=== PATIENT | female | born 1985 | race Caucasian/White ===

== ENCOUNTER 2018-12-07 11:43 | Emergency (ER) | payer MEDICAID, OTHER ==
[~2018-12-07] VITALS: Ht 180.3 cm; Wt 52.2 kg
[2018-12-07 12:28] VITALS: BP 110/70
--- NOTE | 2018-12-07 12:29 | NUR ---
ED Nurse Note:pt. hit her nose on the door today, no bleeding or deformities on arrival noted, pt. A/Ox4 ambulatory
--- NOTE | 2018-12-07 13:27 | Emergency Room Report ---
History of Present Illness General Chief Complaint: Pain Source: Patient Present Illness HPI 33-year-old female presents to the emergency department complaining of 10 out of 10 in severity pain, tenderness and swelling to the nose after accidentally hitting her nose while opening a large heavy door approximately 2 hours ago. Patient does report she had some bleeding out of the right nostril. She denies loss of consciousness, dizziness, sudden severe headache. Patient denies bruising at this time she states that bleeding has resolved. Patient denies taking blood thinning medications. she states that ice has helped to reduce her pain however this is just temporary per patient. Allergies: Coded Allergies: No Known Allergies (Unverified , 12/07/18) Patient History Past Medical History: see triage record Past Surgical History: none Pertinent Family History: none Last Menstrual Period: 12/02/18 Reviewed Nursing Documentation: PMH: Agreed; PSxH: Agreed Nursing Documentation-PMH Past Medical History: No Stated History Review of Systems All Other Systems: negative except mentioned in HPI Physical Exam Vital Signs Date Time Temp Pulse Resp B/P (MAP) Pulse Ox O2 Delivery O2 Flow Rate FiO2 12/07/18 11:48 98.4 78 18 110/70 98 Room Air Sp02 EP Interpretation: reviewed, normal General Appearance: no apparent distress, alert, GCS 15, non-toxic Head: normocephalic, other - swelling and ttp to the nasal bridge area. no evidence of septal hematoma. Eyes: bilateral eye normal inspection, bilateral eye PERRL ENT: hearing grossly normal, normal voice, other - no evidence of septal hematoma. Swelling noted to the nose. mild deformity Neck: full range of motion Respiratory: lungs clear, normal breath sounds, speaking full sentences Cardiovascular #1: regular rate, rhythm Musculoskeletal: back normal, gait/station normal, normal range of motion, non- tender - see ENT Neurologic: alert, oriented x3, responsive, motor strength/tone normal, sensory intact, normal gait, speech normal, grossly normal Psychiatric: judgement/insight normal Skin: normal color, no rash, warm/dry, well hydrated Medical Decision Making PA Attestation Dr. hunt is my supervising Physician whom patient management has been discussed with. Diagnostic Impression: Primary Impression: Nasal bone fracture Qualified Codes: S02.2XXA - Fracture of nasal bones, initial encounter for closed fracture ER Course 33-year-old female presents to the emergency department complaining of 10 out of 10 in severity pain, tenderness and swelling to the nose after accidentally hitting her nose while opening a large heavy door approximately 2 hours ago. Patient does report she had some bleeding out of the right nostril. She denies loss of consciousness, dizziness, sudden severe headache. Patient denies bruising at this time she states that bleeding has resolved. Patient denies taking blood thinning medications. she states that ice has helped to reduce her pain however this is just temporary per patient. Ddx considered but are not limited to Fracture, dislocation, contusion, concussion Sprain/Strain/Spasm, hematoma Vital signs: are WNL, pt. is afebrile H&PE are most consistent with contusion, no evidence of focal neurological deficit, no loss of consciousness. ORDERS: CT Facial bones: questionable non-displaced nasal fracture -- which correlates with HPI ED INTERVENTIONS: -Ice applied to the Affected area. -I do not identify an emergent condition at this time. With current presentation , pt. is stable for close outpatient follow up and conservative treatment. D/ w pt. to return promptly to ED with worsening or new symptoms.- Pt. verbalizes' understanding and agreement with proposed treatment plan.proposed treatment plan. DISCHARGE: At this time pt. is stable for d/c to home. Will provide printed patient care instructions, and any necessary prescriptions. Care plan and follow up instructions have been discussed with the patient prior to discharge. CT/MRI/US Diagnostic Results CT/MRI/US Diagnostic Results : Imaging Test Ordered: CT Facial Bones no contrast Impression questionable non-displaced nasal fracture ---Per official radiology report- Please see report for specific details. Last Vital Signs Date Time Temp Pulse Resp B/P (MAP) Pulse Ox O2 Delivery O2 Flow Rate FiO2 12/07/18 12:28 98.4 78 18 110/70 98 Room Air Status: improved Disposition: HOME, SELF-CARE Condition: Stable Scripts Ibuprofen* (MOTRIN*) 600 Mg Tablet 600 MG ORAL THREE TIMES A DAY, #20 TAB 0 Refills Prov: Windy Patrick 12/07/18 Referrals: Anival Patton MD Patient Instructions: Nasal Fracture, [id number] Additional Instructions: Take medications as directed. Follow up with a Primary Care Provider in 3-5 days, even if your symptoms have resolved. --Please review list of primary care clinics, if you do not already have a primary care provider Return sooner to ED if new symptoms occur, or current symptoms become worse. Do not drink alcohol, drive, or operate heavy machinery while taking [ ] as this may cause drowsiness. - Please note that this Emergency Department Report was dictated using [employer] technology software, occasionally this can lead to erroneous entry secondary to interpretation by the dictation equipment. Windy Patrick Dec 07, 2018 13:27
--- NOTE | 2018-12-07 13:34 | Diagnostic Imaging Report ---
Indications: Facial trauma, pain Technique: Spiral images obtained through the facial bones. No IV contrast utilized. Multiplanar reconstructions were generated.Total dose length product 577.43 mGycm. CTDIvol(s) 28.19 mGy. Dose reduction achieved using automated exposure control Comparison: none Findings: The lowest cuts through the nasal bone demonstrates equivocal slight buckling of the right side of the nasal bone. There is also a questionable tiny osseous fragment adjacent to the right side of the tip of the nasal bone. The nasal septum is intact. Only minimal perinasal soft tissue swelling is demonstrated. The remainder of the bones are intact. The orbital and sinus harden are intact. No worrisome sinus air-fluid levels. The nasal process of the maxilla is intact. The dentition is intact. The mastoids are clear. Sinuses are clear. The maxillary ostia are patent. The visualized intracranial structures are unremarkable. The optic globes are intact. The upper aerodigestive tract is unremarkable. Impression: Very questionable slight buckling of the right side of the nasal bone and possible tiny osseous fragment adjacent to the tip of the right-sided nasal bone, could indicate a nondisplaced nasal fracture. Correlate with clinical findings Otherwise unremarkable exam. The CT scanner at [facility] is accredited by the [employer] and the scans are performed using protocols designed to limit radiation exposure to as low as reasonably achievable to attain images of sufficient resolution adequate for diagnostic evaluation.
[2018-12-07] MEDS ORDERED: IBUPROFEN600 MG ORAL (13:51)
[2018-12-07] MEDS ORDERED: NKM (14:01)
[2018-12-07 14:02] VITALS: BP 110/70
--- NOTE | 2018-12-07 14:05 | NUR ---
ER DISCHARGE NOTE: Patient is cleared to be discharged per ERMD, pt is aox4, on room air, with stable vital signs. pt was given dc and prescription instructions, pt was able to verbalize understanding, pt is able to ambulate with steady gait. pt took all belongings.
== END 2018-12-07 14:10 | disposition home or self-care (01) ==
LOC: EMR 12:35
DX: S02.2XXA Fracture of nasal bones, initial encounter for closed fracture (principal); W22.8XXA Striking against or struck by other objects, initial encounter; Y92.9 Unspecified place or not applicable
CPT/HCPCS: 70486; 99284

== ENCOUNTER 2018-12-11 21:24 | Emergency (ER) | payer MEDICAID ==
[~2018-12-11] VITALS: Ht 180.3 cm; Wt 68.0 kg
[~2018-12-11 21:24] MED LIST: IBUPROFEN600 MG ORAL; NKM
--- NOTE | 2018-12-11 22:07 | Emergency Room Report ---
History of Present Illness General Chief Complaint: Lower Extremity Injury Source: Patient Present Illness HPI Patient present with complaints of pain to the left ankle area Reports that about 1 hour prior to arrival she missed a step and twisted her ankle inward Pain is localized to the outside part of the left ankle Denies any foot pain denies any knee pain Denies any chest pain or short of breath denies any vomiting or diarrhea Denies any lapse of consciousness or head injury Allergies: Coded Allergies: No Known Allergies (Unverified , 12/07/18) Patient History Past Medical History: see triage record Pertinent Family History: none Last Menstrual Period: december Now: No : 1 Para: 1 Reviewed Nursing Documentation: PMH: Agreed; PSxH: Agreed Nursing Documentation-PMH Past Medical History: No Stated History Review of Systems All Other Systems: negative except mentioned in HPI Physical Exam Vital Signs Date Time Temp Pulse Resp B/P (MAP) Pulse Ox O2 Delivery O2 Flow Rate FiO2 12/11/18 21:45 98.2 90 14 129/69 98 Room Air Sp02 EP Interpretation: reviewed, normal General Appearance: well appearing, no apparent distress Head: normocephalic, atraumatic Eyes: bilateral eye PERRL, bilateral eye EOMI ENT: normal pharynx Neck: supple Respiratory: no respiratory distress, no retraction, no accessory muscle use Cardiovascular #1: regular rate, rhythm Gastrointestinal: non tender Musculoskeletal: other - Swelling to the left lateral ankle tender on palpation dorsal foot is nontender the knee itself is nontender Neurologic: alert, oriented x3, responsive Skin: other - Swelling as noted above Lymphatic: no adenopathy Procedures Splinting Splinting : Consent: Verbal Location: Left ankle Pre-Made Type: aircast Splint: sugar-tong Pre-Proc Neuro Vasc Exam: normal Post-Proc Neuro Vasc Exam: normal Patient Tolerated: Well Complications: None Medical Decision Making Diagnostic Impression: Primary Impression: Ankle sprain ER Course Given the patient's history and exam and presentation X-ray imaging was obtained no obvious acute fracture is seen Given the swelling however and discomfort patient had a splint applied Is nonweightbearing with crutches If discomfort persists patient will return for repeat imaging At this time will have close outpatient follow-up Other X-Ray Diagnostic Results Other X-Ray Diagnostic Results : X-Ray ordered: Left ankle # of Views/Limited Vs Complete: 3 View Indication: Pain EP Interpretation: Yes Interpretation: no dislocation, no fractures, other - Soft tissue swelling Impression: Other - Soft tissue swelling Electronically Signed by: Penelope Contreras DO Last Vital Signs Date Time Temp Pulse Resp B/P (MAP) Pulse Ox O2 Delivery O2 Flow Rate FiO2 12/11/18 21:45 98.2 90 14 129/69 98 Room Air Status: improved Disposition: HOME, SELF-CARE Condition: Improved Scripts Ibuprofen* (MOTRIN*) 600 Mg Tablet 600 MG ORAL Q8H PRN for For Pain, #20 TAB 0 Refills Prov: Penelope Contreras DO 12/11/18 Additional Instructions: Patient is provided with the discharge instructions notified to follow up with primary doctor in the next 2-3 days otherwise return to the er with any worsening symptoms. Please note that this report is being documented using [employer] technology. This can lead to erroneous entry secondary to incorrect interpretation by the dictating instrument. Penelope Contreras DO Dec 11, 2018 22:07
[2018-12-11] MEDS ORDERED: IBUPROFEN600 MG ORAL (22:51)
[2018-12-11 23:01] VITALS: BP 129/69
--- NOTE | 2018-12-12 12:39 | Diagnostic Imaging Report ---
Indication: Trauma, pain, status post fall Technique: 3 views of the left ankle Comparison: none Findings: No acute fractures. No dislocations. The joint spaces are preserved. Small bone island is seen in the base of the fourth metatarsal. Impression: No acute bony trauma
== END 2018-12-11 23:00 | disposition home or self-care (01) ==
LOC: EMR 22:06
DX: S93.402A Sprain of unspecified ligament of left ankle, initial encounter (principal); X50.1XXA Overexertion from prolonged static or awkward postures, initial encounter; Y92.9 Unspecified place or not applicable
CPT/HCPCS: 99283